=== PATIENT | female | born 1970 | race Caucasian/White ===

== ENCOUNTER 2017-02-14 15:25 | Inpatient (IN) ==
[2017-02-14 15:50] LABS: Bilirubin,Urine Small (Negative); Blood,Urine Trace-lysed (Negative); Clarity,Urine Clear (Clear); Color,Urine Yellow (Yellow); Glucose,Urine (UA) Normal (Normal); Ketones,Urine Negative (Negative); Leukocyte Esterase,Urine Negative (Negative); Nitrite,Urine Negative (Negative); Protein,Urine 100 mg/dL (Neg-Trace); Urobilinogen,Urine Normal (Normal)
--- NOTE | 2017-02-14 15:51 | Emergency Department Note ---
Disposition Clinical Impression: Colitis Disposition: Admitted As Inpatient Condition: Fair Referrals: Enrico Whelan, NEEDLE VALVE OPERATOR [Primary Care Provider] - (Recheck in 2-3 days if no better) Forms: ED Satisfaction Letter Nausea/Vomiting/Diarrhea HPI - General Chief complaint: ED General Medical Stated complaint: FLU LIKE SYMPTOMS Time Seen by Provider: 02/14/17 15:45 Source: patient Mode of arrival: private vehicle Limitations: no limitations Nursing Notes Reviewed: Yes Vital Signs Reviewed: Yes - History of Present Illness HPI Narrative: Patient relates that she has been having abdominal cramping that is diffuse and continual or last week. She states this has gradually been getting worse. She cannot identify anything that makes it better or worse. The pain is localized. She states she has been very frequent diarrhea without blood or mucus. She has started last 24 hours with some nausea and vomiting to the point of dry heaving. She has not had blood in her emesis. She denies any foodborne illness concerned, recent travel, antibiotics, ill exposures or change in medicines. She denies chest pain, cough or shortness of breath. Denies fever, chills, muscle or joint aches. She denies any urinary problems. She states she has no history of recurrent abdominal problems. Straight she has had a section and a hysterectomy one year ago. She has not had a cholecystectomy, appendectomy and hernia type surgeries. With the persistent pain and now some generalized weakness and malaise, she has come in for evaluation. Pt Subjective Complaint: nausea, vomiting, diarrhea, abdominal pain Onset (ago): week(s) (1) Description of Diarrhea: water Associated Abdominal Pain: Yes If pain, Location of pain: diffuse Severity: moderate, severe Quality: cramping, aching, dull Consistency: constant Improves with: nothing Worsens with: nonthing Associated symptoms: Reports: loss of appetite, malaise, nausea/vomiting, weakness. Denies: myalgias, chest pain, cough, diaphoresis, fever/chills, headaches, rash, dysuria, shortness of breath, syncope - Related Data Home Medications Medication Instructions Recorded Confirmed Lisinopril/Hydrochlorothiazide 1 each PO DAILY 08/14/15 02/14/17 [Zestoretic 20-25 mg Tablet] Sertraline [Zoloft] 25 mg PO DAILY 11/13/17 11/13/17 Allergies Allergy/AdvReac Type Severity Reaction Status Date / Time No Known Allergies Allergy Verified 06/29/15 13:06 All systems ED: reviewed and negative except as stated. Past Medical History - Past Medical History Attestation: Yes The following information was validated with the patient. Source: patient, nursing notes reviewed Medical history: Reports: hypertension Surgical history: Reports: , hysterectomy, orthopedic, other (Right ankle ORIF) Psychiatric history: Reports: depression PHOTO EDITOR history: Reports: other - Social History Smoking Status: Never smoker Smokeless Tobacco Status: No Alcohol use: Reports: none Drug use: Reports: none Physical Exam - General Limitations: no limitations General appearance: alert, in distress - Head Head exam: atraumatic, normocephalic, normal inspection - Eye Eye exam: Present: normal appearance, PERRL, EOMI. Absent: conjunctival injection - ENT ENT exam: normal exam, normal oropharynx, mucous membranes moist - Neck Neck exam: Present: normal inspection, full ROM, trachea midline - Chest Chest inspection: Present: normal inspection, symmetric chest wall rise - Respiratory Respiratory exam: Present: normal lung sounds bilaterally. Absent: respiratory distress, wheezes, prolonged expiratory phase - Cardiovascular Cardiovascular exam: Present: regular rate, normal rhythm, normal heart sounds. Absent: tachycardia - Abdominal Exam Abdominal exam: Present: soft, normal bowel sounds. Absent: distention, guarding, rebound, rigidity, Lemon's sign, tenderness at McBurney's Point, pulsatile mass Abdominal tenderness: Present: diffuse, mild - Extremities Exam Extremities exam: Present: normal inspection, full ROM, normal capillary refill. Absent: tenderness, pedal edema - Expanded Lower Extremity Exam Neurovascular/Tendon exam: Present: normal capillary refill. Absent: motor deficit, sensory deficit, tendon deficit Gait: observed and normal - Back Exam Back exam: Present: normal inspection, full ROM. Absent: tenderness, CVA tenderness (R), CVA tenderness (L), vertebral tenderness - Neurological Exam Neurological exam: Present: alert, oriented X3 - Psychiatric Psychiatric exam: Present: normal affect, normal mood - Skin Skin exam: Present: warm, dry, intact, normal color. Absent: rash, diaphoresis , pallor Course Course Narrative: 1704: There is still awaiting return of the patient's urinalysis. Remaining lab and x-ray And discussed with the patient. She has evidence for a ascending and transverse colitis. She has been written to receive a dose of Bactrim and metronidazole orally. She desires to discuss disposition with her . I have advised that she can try treatment at home with increased fluid intake, oral antibiotics, antiemetics and pain medicine or we can observe for night with hydration and similar medication. 1730: Patient has discussed disposition with her and they feel she will be best off staying for the night. I have spoken with Dr. Serrano who is agreeable with continued IV hydration, antiemetics and pain medicine. She will be continued on oral antibiotics. The care is coordinated to the floor in stable condition. Vital Signs Temperature 97 F L 02/14/17 15:30 Pulse Rate 79 02/14/17 15:30 Respiratory Rate 18 02/14/17 15:30 Blood Pressure 131/83 02/14/17 15:30 O2 Sat by Pulse Oximetry 94 02/14/17 15:30 Temperature 97 F L 02/14/17 15:30 Pulse Rate 77 02/14/17 16:45 Respiratory Rate 16 02/14/17 16:45 Blood Pressure 127/81 02/14/17 16:45 O2 Sat by Pulse Oximetry 95 02/14/17 16:45 Oxygen Delivery Oxygen Delivery Room Air Nausea/Vomiting/Diarrhea - Differential Diagnosis Likely: food poisoning, gastroenteritis, dehydration, surgical process, bowel obstruction - Medical Records Medical records reviewed: Yes I reviewed the patient's medical records. - Lab Data Lab results reviewed: Yes I reviewed the patient's lab results. Lab results narrative: Urinalysis concentration is 1.020 with negative nitrite and leukocyte. Ketones are also negative. Result diagrams: 02/14/17 16:10 02/14/17 16:10 Lab Results 02/14/17 02/14/17 02/14/17 Range/Units 15:40 16:10 16:10 WBC 18.0 H (4.3-11.1) K/mcL RBC 5.39 H (3.82-4.97) M/mcL Hgb 14.6 (11.5-15.4) g/dL Hct 43.8 (35.3-44.9) % MCV 81.3 L (83.0-100.0) fL MCH 27.1 L (28.0-33.3) pg MCHC 33.3 (31.6-35.5) g/dL RDW 13.2 (11.5-14.5) % Plt Count 324 (140-400) K/mcL MPV 9.3 L (9.4-12.4) fL Immature Gran % 0.7 (0-4) % Seg Neutrophils % 86.6 % Lymphocytes % 5.8 % Monocytes % 6.3 % Eosinophils % 0.3 % Basophils % 0.3 % Neutrophils # 15.6 H (1.6-8.9) K/mcL Lymphocytes # 1.0 (0.6-4.6) K/mcL Monocytes # 1.1 (0.0-1.3) K/mcL Eosinophils # 0.1 (0.0-0.6) K/mcL Basophils # 0.1 (0.0-0.2) K/mcL Sodium 137 (136-145) mEq/L Potassium 3.5 (3.5-4.5) mEq/L Chloride 101 (98-109) mEq/L Carbon Dioxide 25 (19-29) mEq/L BUN 13 (7-20) mg/dL Creatinine 1.08 (0.57-1.11) mg/dL Est GFR ( Amer) > 60 (> 60) Est GFR (Non-Af Amer) 54 L (> 60) BUN/Creatinine Ratio 12 (6-26) Glucose 132 H (70-99) mg/dL Calculated Osmolality 286 (280-300) Calcium 9.5 (8.6-10.8) mg/dL Total Bilirubin 0.7 (0.2-1.2) mg/dL Direct Bilirubin 0.3 (0.0-0.5) mg/dL Indirect Bilirubin 0.4 (0.0-1.2) mg/dL AST 17 (5-34) Units/L ALT 18 (0-55) Units/L Alkaline Phosphatase 97 (38-126) Units/L Serum Total Protein 7.6 (6.0-8.3) g/dL Albumin 3.6 (3.5-5.0) g/dL Globulin 4.0 H (2.4-3.5) g/dL Albumin/Globulin Ratio 0.9 L (1.1-2.2) Amylase 71 (25-125) Units/L Lipase 12 (8-78) Units/L Urine Color Yellow (Yellow) Urine Clarity Clear (Clear) Urine pH 6.0 (5.0-8.0) pH Units Ur Specific Wilmot 1.020 (1.010-1.025) Urine Protein 100 H (Neg-Trace) mg/dL Urine Glucose (UA) Normal (Normal) mg/dL Urine Ketones Negative (Negative) mg/dL Urine Blood Trace-lysed H (Negative) Urine Nitrite Negative (Negative) Urine Bilirubin Small H (Negative) Urine Urobilinogen Normal (Normal) mg/dL Ur Leukocyte Esterase Negative (Negative) Urine Microscopic WBC 0-3 (0-3) per hpf Ur Squamous Epith Cells Moderate H (None-Few) per lpf Amorphous Sediment Moderate H (Few) Hyaline Casts Few (None-Few) per lpf Urine Mucus Many H (Few) Ur Culture Indicated? NO (NO) - Radiology Data Radiology results reviewed: Yes I reviewed the patient's radiology results. CT is performed in the abdomen and pelvis without IV or oral contrast. This does raise the base lungs be free of infiltrate. The liver, gallbladder, spleen and pancreas appear normal. She has some shotty mesenteric lymph nodes present. Her transverse colon has wall thickening consistent with enteritis. Denies evidence for obstruction or perforation. Kidneys are without stone or obstruction. Abdominal wall appears normal. This is on my interpretation. Impressions Abdomen/Pelvis CT 02/14/17 16:25 IMPRESSION: There is wall thickening involving the ascending and transverse colon with mild adjacent inflammatory changes. Findings likely related to colitis of undetermined etiology of on noncontrast exam. Mild periportal lymphadenopathy, slightly increased compared to prior. D/ / Belen Dickerson MD / Belen Dickerson MD Interpreting Provider: Belen Dickerson MD
[2017-02-14] MEDS ORDERED: Ondansetron 4 MG/2 ML VIAL IVP ONE (16:00)
[2017-02-14] MEDS ORDERED: *HR* HYDROmorphone (PF) 1 MG/ML SYRINGE IVP ONE (16:00)
[2017-02-14 16:05] LABS: Amorphous Sediment,Urine Moderate (Few); Hyaline Casts,Urine Few per lpf (None-Few); Mucus,Urine Many (Few); Squamous Epithelial Cell,Urine Moderate per lpf (None-Few); WBC,Urine 0-3 per hpf (0-3)
[2017-02-14] MEDS: 0.9 % Sodium Chloride 1,000 ML IVC SCH ×6 (16:14→21:42)
[2017-02-14 16:17] LABS: Basophils # 0.1 K/mcL (0.0-0.2); Basophils % 0.3 %; Eosinophils # 0.1 K/mcL (0.0-0.6); Eosinophils % 0.3 %; Hematocrit 43.8 % (35.3-44.9); Hemoglobin 14.6 g/dL (11.5-15.4); Immature Granulocytes % 0.7 % (0-4); Lymphocytes % 5.8 %; Mean Corpuscular HGB Conc 33.3 g/dL (31.6-35.5); Mean Corpuscular Hemoglobin 27.1 pg (28.0-33.3); Mean Corpuscular Volume 81.3 fL (83.0-100.0); Mean Platelet Volume 9.3 fL (9.4-12.4); Monocytes # 1.1 K/mcL (0.0-1.3); Monocytes % 6.3 %; Neutrophils # 15.6 K/mcL (1.6-8.9); Platelet Count 324 K/mcL (140-400); Red Blood Count 5.39 M/mcL (3.82-4.97); Red Cell Distribution Width 13.2 % (11.5-14.5); Segmented Neutrophils % 86.6 %
[2017-02-14 16:36] LABS: Alanine Aminotransferase 18 Units/L (0-55); Albumin 3.6 g/dL (3.5-5.0); Albumin/Globulin Ratio 0.9 (1.1-2.2); Alkaline Phosphatase 97 Units/L (38-126); Amylase 71 Units/L (25-125); Aspartate Amino Transferase 17 Units/L (5-34); BUN/Creatinine Ratio 12 (6-26); Bilirubin,Direct 0.3 mg/dL (0.0-0.5); Bilirubin,Indirect 0.4 mg/dL (0.0-1.2); Bilirubin,Total 0.7 mg/dL (0.2-1.2); Blood Urea Nitrogen 13 mg/dL (7-20); Calcium 9.5 mg/dL (8.6-10.8); Carbon Dioxide 25 mEq/L (19-29); Chloride 101 mEq/L (98-109); Glucose 132 mg/dL (70-99); Lipase 12 Units/L (8-78); Osmolality,Calculated 286 (280-300); Potassium 3.5 mEq/L (3.5-4.5); Sodium 137 mEq/L (136-145); Total Protein 7.6 g/dL (6.0-8.3); eGFR For African Americans > 60 (> 60); eGFR For Non-African Americans 54 (> 60)
[2017-02-14] MEDS ORDERED: metroNIDAZOLE 250 MG TABLET PO ONE (17:09)
[2017-02-14] MEDS ORDERED: Sulfamethoxazole/Trimeth DS 1 EACH TABLET PO ONE (17:09)
[2017-02-14] MEDS ORDERED: Naloxone 0.4 MG/ML INJ IVP PRN (17:54)
[2017-02-14] MEDS ORDERED: Acetaminophen 325 MG TABLET PO PRN (17:54)
[2017-02-14] MEDS ORDERED: *HR* HYDROmorphone (PF) 1 MG/ML SYRINGE IVP PRN (17:54)
[2017-02-14] MEDS: *HR* HYDROmorphone (PF) 1 MG/ML SYRINGE IVP PRN (22:23)
[2017-02-14] MEDS: Sulfamethoxazole/Trimeth DS 1 EACH TABLET PO SCH (22:27)
[2017-02-14] MEDS: metroNIDAZOLE 500 MG TABLET PO SCH (22:27)
[2017-02-15] MEDS: 0.9 % Sodium Chloride 1,000 ML IVC SCH (01:45)
[2017-02-15] MEDS: *HR* HYDROmorphone (PF) 1 MG/ML SYRINGE IVP PRN ×3 (04:07→18:59)
[2017-02-15] MEDS: metroNIDAZOLE 500 MG TABLET PO SCH ×3 (09:03→22:23)
[2017-02-15] MEDS: Sulfamethoxazole/Trimeth DS 1 EACH TABLET PO SCH (09:04)
--- NOTE | 2017-02-15 11:47 | Internal Med History&Physical ---
Date of Encounter: 02/15/17 Time of Encounter: 11:15 Assessment and Plan (1) C. difficile colitis Current visit: Yes Status: Acute She has been started on oral Flagyl. We will add lactobacillus. (2) Azotemia Current visit: Yes Status: Acute Suspect secondary to vomiting, diarrhea, and use of diuretics. We will give IV fluids and antiemetics and hold diuretics at this time. Recheck labs in a.m. (3) Hypertension Current visit: Yes Status: Chronic We will hold antihypertensive since blood pressure is borderline low. Qualifiers: Hypertension type: essential hypertension Qualified Code(s): I10 - Essential (primary) hypertension (4) Microcytosis Current visit: Yes Status: Acute We will order iron profile with other labs in a.m. Internal Medicine - H&P: HPI Chief complaint: Vomiting and diarrhea Admitted From: Home Plans for Post Hospital Care: Home History of present illness: Ms. Land is a 46 year old female who came to emergency room stating she had onset of abdominal cramps, vomiting and diarrhea one week earlier. She reports multiple episodes of vomiting and diarrhea without evidence of hematemesis, hematochezia or melena. She had occasional sensation of chills but denies fever. When she did not improve her insisted she come to emergency room. She was evaluated and found to have evidence of colitis on abdominal CT scan. Stool tested positive for C. difficile toxin. She was admitted to [facility] floor for ongoing care needs. She reports having dental extractions approximately 3 weeks ago and received a prescription for clindamycin and Medrol Dosepak postoperatively. Her last dose of antibiotics was approximately 2 weeks prior to onset of GI symptoms. She denies previous similar episodes. No family members have similar illnesses. She has had cholecystectomy but denies disorders of her liver or exocrine pancreas. Past Med Surg Social Fam HX - Past Medical History Medical history: hypertension Psychiatric history: depression - Past Surgical History Surgical History: , hysterectomy, orthopedic, other - Social History Smoking Status: Never smoker Smokeless Tobacco Status: No Alcohol use: none Drug use: none - Family History Father Living Status: Hx Family Cardiac Disorders: Yes (heart attack) Internal Medicine - H&P: Meds Lisinopril/Hydrochlorothiazide [Zestoretic 20-25 mg Tablet] 1 each PO DAILY 03/19 [History] Sertraline [Zoloft] 25 mg PO DAILY 02/14/17 [History] 3 Allergy/AdvReac Type Severity Reaction Status Date / Time No Known Allergies Allergy Verified 06/29/15 13:06 All Systems PM: A 10-system review of systems was performed and is negative for pertinent findings except as documented above in the HPI. Review of systems: Gen.: She states her weight has been stable the past few months Cardiovascular: She has history of hypertension but denies AL heart failure angina DVT or pulmonary embolus Respiratory: She is a lifelong nonsmoker denies chronic lung disease GI: As per history of present illness : She has had kidney stones in the past. She denies other kidney or bladder disorders Neurologic: She denies large distribution strokes or seizures Endocrine: She denies diabetes thyroid disease or hyperlipidemia Hematology/oncology: She denies blood disorders cancers or anemia Psychiatric: She takes Zoloft for depression. She denies other mental health issues Musk skeletal: She has had 2 left ankle surgeries remotely. She has DJD but denies gout or other bone joint or muscle disorders. - Constitutional Vitals: Temp Pulse Resp BP Pulse Ox 97.1 F L 85 17 100/72 99 02/15/17 10:52 02/15/17 10:52 02/15/17 10:52 02/15/17 10:52 02/15/17 10:52 Exam: Gen.: She is a well-developed well-nourished female lying in bed who appears in mild discomfort HEENT: Head is atraumatic and normocephalic. Eyes: EOMI. There is no scleral icterus. Mouth: Mucosa is moist. Neck: Supple and nontender. There is no thyromegaly or adenopathy noted. Heart: Regular without murmurs gallops or ectopics Lungs: No wheezes or crackles are heard. Abdomen: Bowel sounds are present. Abdomen has mild tenderness to light palpation. Extremities: There is no cyanosis edema or clubbing noted. Dorsalis pedis and posterior tibial pulses are trace palpable bilaterally. Neurologic: Mental status: She is talkative and a good historian. Cranial nerves: Smile is symmetric. Forehead wrinkles bilaterally. Tongue protrudes midline. EOMI. Motor: There is no pronator drift. Cerebellar: Finger to nose is intact bilaterally. Skin: Warm and dry Internal Med - H&P Results - Labs CBC & Chem 7: 02/14/17 16:10 02/14/17 16:10
[2017-02-15] MEDS: 0.45 % Sodium Chloride w/KCl 20 MEQ/1,000 ML MLS IVC SCH (13:53)
[2017-02-15] MEDS: Ondansetron 4 MG/2 ML VIAL IVP PRN (19:37)
[2017-02-16] MEDS: 0.45 % Sodium Chloride w/KCl 20 MEQ/1,000 ML MLS IVC SCH ×3 (00:04→20:36)
[2017-02-16 05:28] LABS: Basophils # 0.1 K/mcL (0.0-0.2); Basophils % 0.6 %; Eosinophils # 0.4 K/mcL (0.0-0.6); Eosinophils % 3.3 %; Hematocrit 38.5 % (35.3-44.9); Hemoglobin 12.5 g/dL (11.5-15.4); Immature Granulocytes % 0.5 % (0-4); Lymphocytes # 1.5 K/mcL (0.6-4.6); Mean Corpuscular HGB Conc 32.5 g/dL (31.6-35.5); Mean Corpuscular Hemoglobin 26.8 pg (28.0-33.3); Mean Corpuscular Volume 82.4 fL (83.0-100.0); Mean Platelet Volume 9.5 fL (9.4-12.4); Monocytes % 7.9 %; Platelet Count 249 K/mcL (140-400); Red Blood Count 4.67 M/mcL (3.82-4.97); Red Cell Distribution Width 13.4 % (11.5-14.5); Segmented Neutrophils % 75.7 %
[2017-02-16 05:29] LABS: Neutrophils # 9.2 K/mcL (1.6-8.9)
[2017-02-16 06:00] LABS: Alanine Aminotransferase 12 Units/L (0-55); Albumin 2.9 g/dL (3.5-5.0); Albumin/Globulin Ratio 0.9 (1.1-2.2); Alkaline Phosphatase 75 Units/L (38-126); Aspartate Amino Transferase 14 Units/L (5-34); BUN/Creatinine Ratio 11 (6-26); Bilirubin,Total 0.4 mg/dL (0.2-1.2); Blood Urea Nitrogen 11 mg/dL (7-20); Calcium 8.6 mg/dL (8.6-10.8); Carbon Dioxide 25 mEq/L (19-29); Chloride 104 mEq/L (98-109); Globulin 3.3 g/dL (2.4-3.5); Glucose 96 mg/dL (70-99); Osmolality,Calculated 287 (280-300); Potassium 3.5 mEq/L (3.5-4.5); Sodium 139 mEq/L (136-145); Total Protein 6.2 g/dL (6.0-8.3); eGFR For African Americans > 60 (> 60); eGFR For Non-African Americans 59 (> 60)
[2017-02-16] MEDS: *HR* Enoxaparin 40 MG/0.4 ML SYRINGE SQ SCH (06:30)
[2017-02-16 09:11] LABS: % Iron Saturation 15 % (15-50); Iron 39 mcg/dL (50-170); Transferrin 186 mg/dL (180-382)
[2017-02-16] MEDS: metroNIDAZOLE 500 MG TABLET PO SCH ×3 (09:33→20:36)
[2017-02-16] MEDS: *HR* HYDROmorphone (PF) 1 MG/ML SYRINGE IVP PRN (09:36)
[2017-02-16 09:51] LABS: Ferritin 145 ng/ml (5-204)
[2017-02-16 10:02] LABS: Folate 13.5 ng/mL (7.0-31.4)
--- NOTE | 2017-02-16 10:08 | Internal Med Progress Note ---
Date of Encounter: 02/16/17 Time of Encounter: 10:00 - Assessment and plan (1) C. difficile colitis Current Visit: Yes Status: Acute Assessment and plan: February 16. Continue oral Flagyl and lactobacillus. Recheck labs in a.m. Anticipate discharge tomorrow if stable (2) Azotemia Current Visit: Yes Status: Acute Assessment and plan: February 16. Slightly improved. Continue IV fluids. Recheck labs in a.m. (3) Hypertension Current Visit: Yes Status: Chronic Assessment and plan: February 16. Continue to hold antihypertensive medication. Qualifiers: Hypertension type: essential hypertension Qualified Code(s): I10 - Essential (primary) hypertension (4) Microcytosis Current Visit: Yes Status: Acute Assessment and plan: February 16. Iron profile and other anemia workup is pending. - Subjective Interval history: February 16. She has no new complaints. She states she still has some crampy abdominal pain and diarrhea. - Constitutional Vitals: Temp Pulse Resp BP Pulse Ox 98.6 F 62 18 105/66 98 02/16/17 07:05 02/16/17 07:05 02/16/17 07:05 02/16/17 07:05 02/16/17 07:05 Exam: She is resting comfortably in bed and appears in no acute distress. Her affect is cheerful. I reviewed her medications and lab results. Internal Medicine: Result - Labs CBC & Chem 7: 02/16/17 05:10 02/16/17 05:10 Labs: Short CBC 02/16/17 Range/Units 05:10 WBC 12.2 H (4.3-11.1) K/mcL Hgb 12.5 D (11.5-15.4) g/dL Hct 38.5 (35.3-44.9) % Plt Count 249 (140-400) K/mcL Neutrophils # 9.2 H (1.6-8.9) K/mcL BMP 02/16/17 05:10 Sodium 139 Potassium 3.5 Chloride 104 Carbon Dioxide 25 BUN 11 Creatinine 1.01 Glucose 96 Calcium 8.6 Liver Function 02/16/17 Range/Units 05:10 Total Bilirubin 0.4 (0.2-1.2) mg/dL AST 14 (5-34) Units/L ALT 12 (0-55) Units/L Alkaline Phosphatase 75 (38-126) Units/L Albumin 2.9 L (3.5-5.0) g/dL Consult Discharge Plan - Plan Referrals: Enrico Whelan, VINI [Primary Care Provider] - 1 week
[2017-02-17] MEDS: *HR* Enoxaparin 40 MG/0.4 ML SYRINGE SQ SCH (05:26)
[2017-02-17 06:07] LABS: Basophils % 0.5 %; Eosinophils # 0.4 K/mcL (0.0-0.6); Eosinophils % 5.3 %; Hematocrit 37.6 % (35.3-44.9); Hemoglobin 12.4 g/dL (11.5-15.4); Immature Granulocytes % 0.5 % (0-4); Lymphocytes # 1.2 K/mcL (0.6-4.6); Lymphocytes % 14.5 %; Mean Corpuscular Volume 81.7 fL (83.0-100.0); Monocytes # 0.8 K/mcL (0.0-1.3); Monocytes % 9.3 %; Neutrophils # 5.6 K/mcL (1.6-8.9); Platelet Count 263 K/mcL (140-400); Red Cell Distribution Width 13.1 % (11.5-14.5); Segmented Neutrophils % 69.9 %
[2017-02-17 06:22] LABS: BUN/Creatinine Ratio 10 (6-26); Blood Urea Nitrogen 10 mg/dL (7-20); Calcium 8.5 mg/dL (8.6-10.8); Carbon Dioxide 24 mEq/L (19-29); Chloride 108 mEq/L (98-109); Glucose 95 mg/dL (70-99); Osmolality,Calculated 291 (280-300); Sodium 141 mEq/L (136-145); eGFR For African Americans > 60 (> 60); eGFR For Non-African Americans > 60 (> 60)
[2017-02-17] MEDS: 0.45 % Sodium Chloride w/KCl 20 MEQ/1,000 ML MLS IVC SCH (06:24)
[2017-02-17 07:07] VITALS: BP 129/74
[2017-02-17] MEDS: metroNIDAZOLE 500 MG TABLET PO SCH (08:08)
[2017-02-17] MEDS: *HR* HYDROmorphone (PF) 1 MG/ML SYRINGE IVP PRN (08:19)
--- NOTE | 2017-02-17 09:33 | Discharge Summary ---
Date of Encounter: 02/17/17 Time of Encounter: 09:25 - Discharge Diagnosis (1) C. difficile colitis Priority: Primary Status: Acute (2) Azotemia Priority: Secondary Status: Acute (3) Hypertension Priority: Secondary Status: Chronic Qualifiers: Hypertension type: essential hypertension Qualified Code(s): I10 - Essential (primary) hypertension (4) Microcytosis Priority: Secondary Status: Acute - Discharge Medications Prescriptions: Lactobacillus [Culturelle] 1 each PO BID #14 cap.sprink metroNIDAZOLE [Flagyl] 500 mg PO TID #21 tablet Ondansetron HCl [Zofran] 4 mg PO Q4H PRN #12 tablet PRN Reason: Nausea Home Medications: Sertraline [Zoloft] 25 mg PO DAILY 02/14/17 [History] Lactobacillus [Culturelle] 1 each PO BID #14 cap.sprink 02/17/17 [Rx] Ondansetron HCl [Zofran] 4 mg PO Q4H PRN #12 tablet 02/17/17 [Rx] metroNIDAZOLE [Flagyl] 500 mg PO TID #21 tablet 02/17/17 [Rx] Allergies/Adverse Reactions: 3 Allergy/AdvReac Type Severity Reaction Status Date / Time No Known Allergies Allergy Verified 06/29/15 13:06 Date of admission: 02/15/17 11:43 Primary care physician: Enrico Whelan CNP - Patient Status Disposition: Home, Self-Care Condition: Fair Functional capacity at discharge: independent ambulation Overall status at discharge: patient is progressing back to baseline - Discharge Instructions Follow Up With: Enrico Whelan CNP [Primary Care Provider] - 1 week - Diet and Activity Activity: resume usual activities as tolerated Diet: advance to your usual diet Hospital course: Ms. Land is a 46 year old female who came to emergency room stating she had onset of abdominal cramps, vomiting and diarrhea one week earlier. She reports multiple episodes of vomiting and diarrhea without evidence of hematemesis, hematochezia or melena. She had occasional sensation of chills but denies fever. When she did not improve her insisted she come to emergency room. She was evaluated and found to have evidence of colitis on abdominal CT scan. Stool tested positive for C. difficile toxin. She was admitted to [facility] for ongoing care needs. Initial orders were written by the emergency room physician. I saw her on February 15 and performed the history and physical. She was started on oral Flagyl and lactobacillus. She had clinical improvement with WBC normalizing to 8.1 by day of discharge with resolution of the left shift. She will continue with oral Flagyl and lactobacillus for 7 additional days after discharge. IV fluids were given and azotemia improved with creatinine decreasing to 0.96 and estimated GFR rising to greater than 60 by day of discharge. Additional labs showed iron 39, transferrin saturation 15%, transferrin 186, ferritin 145, B12 297, and folate 13.5. Since she was not anemic I did not prescribe ferrous sulfate. Her PCP can monitor this. On February 17 she felt stable for discharge home. She will return to work February 21 and will continue with antibiotics and probiotic or 7 additional days. She will follow with her PCP Enrico Whelan CNP within 1 week. - Time Spent with Patient Total time spent providing and/or coordinating discharge services: - Constitutional Vitals: Temp Pulse Resp BP Pulse Ox 98.4 F 53 18 129/74 96 02/17/17 07:07 02/17/17 07:07 02/17/17 07:07 02/17/17 07:07 02/17/17 07:07
[2017-02-17] MEDS: Ondansetron 4 MG/2 ML VIAL IVP PRN (10:14)
== END 2017-02-17 10:45 | disposition home or self-care (01) | DRG 373 ==
LOC: EMEROOPIK 15:25 → INPPIK 15:25
PROVIDERS: ADMIT Internal Medicine; ATTEND Internal Medicine